=== PATIENT | male | born 1945 | race Caucasian/White ===

== ENCOUNTER 2016-06-03 16:13 | Inpatient (IN) | payer OTHER, MEDICAID ==
[~2016-06-03] VITALS: Ht 182.9 cm; Wt 64.9 kg
[2016-06-03 16:19] VITALS: BP 140/75; PULSE 90; RESP 14; TEMP 98.2; O2SAT 99
--- NOTE | 2016-06-03 16:25 | NUR ---
Placed in room 1 . Placed on monitoring manager, blood pressure machine and pulse oximeter. To gown for exam. Side rails up.
--- NOTE | 2016-06-03 16:26 | NUR ---
BIB BLS, came from [facility].c/o increasing of confusion,abnormal behavior. pt is awake,confused,oriented x 1 only. follow command,cooperative,no acute distress.
--- NOTE | 2016-06-03 16:37 | NUR ---
SARA Mena at bedside examining patient.
--- NOTE | 2016-06-03 16:40 | NUR ---
# 20 gauge angiocath placed to . Use of asceptic technique. Opsite placed over site. Blood return noted. Blood for lab drawn from site. Flushed with 10 cc of normal saline. No evidence of infiltration noted. Patient tolerated well.
--- NOTE | 2016-06-03 16:41 | NUR ---
visited by his .
--- NOTE | 2016-06-03 16:41 | NUR ---
portable chest xay done.
--- NOTE | 2016-06-03 16:43 | NUR ---
Pt transported to radiology.
--- NOTE | 2016-06-03 16:43 | NUR ---
transported to CT scan via [facility].
[2016-06-03 16:52] LABS: BASOPHILS % (AUTO) 0.7 % (0.0-2.0); EOSINOPHILS % (AUTO) 0.6 % (0.0-4.0); HEMATOCRIT 32.4 % (36-54); HEMOGLOBIN 11.1 g/dL (14.0-18.0); LYMPHOCYTES # (AUTO) 0.8 K/uL (1.0-5.5); LYMPHOCYTES % (AUTO) 12.2 % (20.5-51.5); MEAN CORPUSCULAR HEMOGLOBIN 28 pg (27-31); MEAN CORPUSCULAR HGB CONC 34 % (32-36); MEAN CORPUSCULAR VOLUME 82 fL (79.0-98.0); MONOCYTES # (AUTO) 0.5 K/uL (0.0-1.0); MONOCYTES % (AUTO) 7.7 % (1.7-9.3); NEUTROPHILS # (AUTO) 5.6 K/uL (1.8-7.7); NEUTROPHILS % (AUTO) 78.8 % (40.0-70.0); PLATELET COUNT (AUTO) 222 K/uL (130-430); RED BLOOD CELL COUNT(AUTO) 3.97 MIL/uL (4.2-6.2); RED CELL DISTRIBUTION WIDTH 12.5 % (9.0-15.0); WHITE BLOOD COUNT (AUTO) 6.9 K/uL (4.8-10.8)
[2016-06-03 16:55] LABS: ANION GAP 6 (5-15); CALCIUM 9.2 mg/dL (8.4-11.0); CHLORIDE 101 mmol/L (98-107); CREATININE 1.15 mg/dL (0.55-1.30); GLUCOSE 166 mg/dL (70-99); POTASSIUM 4.1 mmol/L (3.5-5.1); SODIUM SERUM 136 mmol/L (136-145); UREA NITROGEN, BLOOD 16 mg/dL (8-21)
[2016-06-03 16:57] LABS: INR 1.1 (0.80-1.20); PROTHROMBIN TIME 11.6 SECS (9.5-12.5)
[2016-06-03] MEDS ORDERED: LISI-600 PO (16:58)
[2016-06-03] MEDS ORDERED: MELA3TAB37 PO (16:58)
[2016-06-03] MEDS ORDERED: LORA-258 PO (16:58)
[2016-06-03] MEDS ORDERED: METF-510 PO (16:58)
--- NOTE | 2016-06-03 17:00 | NUR ---
return back from ct scan
[2016-06-03 17:01] LABS: ALANINE AMINOTRANSFERASE 17 U/L (12-78); ALBUMIN 3.8 g/dL (3.4-4.8); ASPARTATE AMINOTRANSFERASE 17 U/L (10-37); TOTAL BILIRUBIN 0.8 mg/dL (0.0-1.0); TOTAL PROTEIN, SERUM 7.7 g/dL (6.4-8.3)
[2016-06-03 17:04] LABS: ACETAMINOPHEN < 1 ug/mL (1-30)
--- NOTE | 2016-06-03 17:36 | NUR ---
Dr. Alfaro at the bedside discussing plan of care.
[2016-06-03 17:50] LABS: BILIRUBIN,URINE NEGATIVE (NEGATIVE); BLOOD, URINE NEGATIVE (NEGATIVE); CLARITY/URINE CLEAR (CLEAR); COLOR,URINE YELLOW (YELLOW); GLUCOSE,URINE NEGATIVE (NEGATIVE); KETONES,URINE NEGATIVE (NEGATIVE); LEUKOCYTE ESTERASE ,URINE NEGATIVE (NEGATIVE); NITRITE, URINE NEGATIVE (NEGATIVE); PROTEIN URINE NEGATIVE (NEGATIVE)
--- NOTE | 2016-06-03 18:00 | NUR ---
Dr alva reviewed the ct scan result,possible chronic or subcuate hemorrhagic.Dr HILL paged.awaiting him to call back.
--- NOTE | 2016-06-03 18:00 | NUR ---
Medication reconciliation completed with information provided by PT's record. Any prior medication reconciliation on file was reviewed and corrected.
--- NOTE | 2016-06-03 18:17 | NUR ---
Attempt call x 3 for emergency room prior to end of shift to begin admission. Not able to reach admit nurse, Leila. Will endorse to night nurse.
[2016-06-03] MEDS ORDERED: ACET325T53 PO (18:23)
--- NOTE | 2016-06-03 18:29 | NUR ---
Dr HILL called back ,update pt's ct result by Dr alva,it's ok to MS per Dr alva.
--- NOTE | 2016-06-03 18:31 | NUR ---
Patient will be admitted to care of [facility]. Admitted to unit. Will go to room . Belongings list completed. Summary report printed. Report given to .
--- NOTE | 2016-06-03 18:31 | NUR ---
Call from ER says they will bring pt when assist returns to help with transport.
--- NOTE | 2016-06-03 18:41 | NUR ---
ADMISSION NOTE Received patient from ER via [facility], received report from RN. Patient admitted with diagnosis of ALOC. Patient oriented to hospital routine, call light, toileting and safety-patient verbalized understanding.
--- NOTE | 2016-06-03 18:45 | NUR ---
CONSULTATION PAGED REASON FOR CONSULTATION:ALOC WAS CONSULT CALLED?Y PERSON WHO WAS NOTIFIED:[facility] CONSULTING PHYSICIAN:,SAID SENIOR COBOL DEVELOPER SPECIALTY:PSYCH SENIOR COBOL DEVELOPER PHONE NUMBER:[phone]
--- NOTE | 2016-06-03 19:33 | NUR ---
CONSULTATION PAGED REASON FOR CONSULTATION:CONFUSION WAS CONSULT CALLED?Y PERSON WHO WAS NOTIFIED:[facility] CONSULTING PHYSICIAN:THEODORA ENRIQUE CUSTOMER SUPPORT AGENT SPECIALTY:NEURO CUSTOMER SUPPORT AGENT PHONE NUMBER:[phone]
[2016-06-03 20:10] VITALS: BP 134/92; PULSE 83; RESP 18; TEMP 99.1; O2SAT 97
--- NOTE | 2016-06-03 20:10 | NUR ---
OPENING ASSESSMENT PATIENT ALERT/ORIENTED X1. SPEECH IS CLEAR. PATIENT IS FORGETFUL AND CONFUSED. DON'T KNOW WHY HE IS IN THE HOSPITAL. MOVES ALL EXTREMITIES WITH GENERALIZED WEAKNESS. USES WHEEL CHAIR FOR MOBILITY, ACCORDING TO . HAS SALINE LOCK 20 G LFA INTACT AND PATENT. SITE IS CLEAR. TOLERATING DIET WELL. NO S/S OF ASPIRATION NOTED. CALL LIGHT WITHIN EASY ACCESS. EDUCATED PATIENT TO CALL NURSE FOR ALL NEEDS AND NOT TO GET OUT OF BED.
[2016-06-03] MEDS ORDERED: NON-FORMULARY MEDICATION (Melatonin 3 MG) PO SCH (21:00)
--- NOTE | 2016-06-03 21:00 | NUR ---
BLOOD SUGAR 175 RECEIVED REGULAR INSULIN 2 UNITS SC.
[2016-06-03] MEDS: INSULIN REGULAR, HUMAN 100 UNITS/ML, 10 ML VIAL (novoLIN R) SUBCUT PRN (21:55)
[2016-06-03] MEDS: LORazepam 1 MG TABLET PO PRN (23:10)
--- NOTE | 2016-06-03 23:10 | NUR ---
AGITATED PATIENT SITTING @ BEDSIDE TRYING TO GET OUT OF BED. INSISTING ON GOING HOME. EDUCATED PATIENT TO STAY IN BED, BUT PATIENT CONTINUED TO BE AGITATED. ATIVAN 0.5MG PI GIVEN @ THIS TIME.
[2016-06-04] VITALS (7 sets, daily range): BP systolic 122–157; BP diastolic 69–94; PULSE 71–124; RESP 16–20; TEMP 97.7–100.9; O2SAT 96–100
--- NOTE | 2016-06-04 00:15 | NUR ---
NOTE PATIENT IS NOT AGITATED @ THIS TIME. RESTING QUIETLY WITHOUT DISTRESS. FALL PRECAUTION. BED ALARM ON. BED IN LOW POSITION. SIDE RAILS UP X3.CALL LIGHT WITHIN EASY ACCESS.
--- NOTE | 2016-06-04 02:05 | NUR ---
NOTES PATIENT NOT AGITATED @ THIS TIME. RESTING QUIETLY WITHOUT DISTRESS.
--- NOTE | 2016-06-04 04:10 | NUR ---
PATIENT RESTING: Patient resting quietly. No acute distress noted. Vital signs within normal range.
--- NOTE | 2016-06-04 06:00 | NUR ---
BLOOD SUGAR 133 NO COVERAGE REQUIRED.
--- NOTE | 2016-06-04 06:25 | NUR ---
CLOSING NOTES NO DISTRESS NOTED. SLEEPING INTERMITTENTLY. NO PAIN NOTED. PULLED OUT HIS IV. CALL LIGHT WITHIN EASY ACCESS. EDUCATED PATIENT TO CALL NURSE FOR ALL NEEDS AND NOT TO GET OUT OF BED. FALL PRECAUTIONS. BED LOCKED IN LOW POSITION. SIDE RAILS UP X3. BED ALARM ON.
[2016-06-04 06:47] LABS: ANION GAP 6 (5-15); CALCIUM 9.1 mg/dL (8.4-11.0); CHLORIDE 102 mmol/L (98-107); CREATININE 0.99 mg/dL (0.55-1.30); GLUCOSE 135 mg/dL (70-99); POTASSIUM 3.9 mmol/L (3.5-5.1); SODIUM SERUM 136 mmol/L (136-145); UREA NITROGEN, BLOOD 13 mg/dL (8-21)
[2016-06-04 06:53] LABS: BASOPHILS # (AUTO) 0.1 K/uL (0.0-0.2); BASOPHILS % (AUTO) 1.1 % (0.0-2.0); EOSINOPHILS # (AUTO) 0.1 K/uL (0.0-0.4); EOSINOPHILS % (AUTO) 1.4 % (0.0-4.0); HEMATOCRIT 30.8 % (36-54); HEMOGLOBIN 10.1 g/dL (14.0-18.0); LYMPHOCYTES % (AUTO) 19.4 % (20.5-51.5); MEAN CORPUSCULAR HEMOGLOBIN 27 pg (27-31); MEAN CORPUSCULAR HGB CONC 33 % (32-36); MEAN CORPUSCULAR VOLUME 82 fL (79.0-98.0); MONOCYTES # (AUTO) 0.5 K/uL (0.0-1.0); MONOCYTES % (AUTO) 10.4 % (1.7-9.3); NEUTROPHILS # (AUTO) 3.2 K/uL (1.8-7.7); NEUTROPHILS % (AUTO) 67.7 % (40.0-70.0); PLATELET COUNT (AUTO) 201 K/uL (130-430); RED BLOOD CELL COUNT(AUTO) 3.74 MIL/uL (4.2-6.2); RED CELL DISTRIBUTION WIDTH 12.4 % (9.0-15.0); WHITE BLOOD COUNT (AUTO) 4.9 K/uL (4.8-10.8)
--- NOTE | 2016-06-04 08:00 | NUR ---
AM Initial Notes Pt aaox1 and with altered level of consciousness. No complaints of pain or discomfort. No distress noted. Incontinent care done. Repositioned and kept comfortable. Fall and safety precautions enforced with bed alarm armed, fall risk band on and close to nurse's station. Will monitor.
[2016-06-04] MEDS: QUEtiapine FUMARATE 25 MG TABLET PO SCH ×2 (08:29→20:28)
[2016-06-04] MEDS: LISINOPRIL 20 MG TABLET PO SCH (08:29)
--- NOTE | 2016-06-04 09:30 | NUR ---
Physical Therapy Pt up with therapist. Very weak and unsteady gait noted.
--- NOTE | 2016-06-04 11:00 | NUR ---
Rounds Pt sound asleep. No signs of facial grimacing for pain or discomfort. No distress noted. at bedside. Safety and fall precautions enforced.
[2016-06-04] MEDS: INSULIN REGULAR, HUMAN 100 UNITS/ML, 10 ML VIAL (novoLIN R) SUBCUT PRN ×2 (11:53→20:35)
--- NOTE | 2016-06-04 13:00 | NUR ---
Rounds Pt awake going for MRI. No complaints of pain or discomfort. No distress noted. New IV inserted.
[2016-06-04] MEDS ORDERED: GADOPENTETATE DIMEGLUMINE 15 ML VIAL IV ONE (13:35)
--- NOTE | 2016-06-04 14:47 | NUR ---
Confused Pt confused and trying to get out of bed stating "I need to leave and collect my cans." "I need to put on my shoes and get out of here." Reorientation done. Made pt lay back down. Will monitor.
--- NOTE | 2016-06-04 15:30 | NUR ---
Restless Pt feeling restless and confused and tries to get out of bed. Calming and comfort measures done. Pt would lay back then sit up and try to get out of bed again.
--- NOTE | 2016-06-04 17:22 | NUR ---
Rounds Pt awake, calm and cooperative. No complaints of pain or discomfort. No distress noted. at bedside. Direct observer inside room. Fall and safety precautions enforced.
--- NOTE | 2016-06-04 18:10 | NUR ---
Fever Pt feeling cold. Vital signs: T-100.5, P-124, BP-154/94. Charge nurse aware and put a page to Dr. Sheehan.
[2016-06-04] MEDS: ACETAMINOPHEN 325 MG TABLET PO PRN (18:16)
--- NOTE | 2016-06-04 18:20 | NUR ---
Dr. Sissy BISHOP doing rounds and made aware of patient condition. Plan of care discussed with patient and at bedside.
--- NOTE | 2016-06-04 18:45 | NUR ---
Closing notes Pt awake resting in bed. No complaints of pain or discomfort. Temperature 100.3. Incontinent care done. Will endorse care to incoming nurse.
--- NOTE | 2016-06-04 19:38 | NUR ---
PM NOTE pt. a/ox1, temperature 100.9, cooling measures taken, no distress noted, denies pain, will continue to monitor.
--- NOTE | 2016-06-04 20:15 | NUR ---
INCONTINENT PT. INCONTINENT OF URINE, LORNA CARE DONE NEW GOWN APPLIED, NEW LINEN APPLIED. REPOSITIONED WITH PILLOW SUPPORT.
--- NOTE | 2016-06-04 20:30 | NUR ---
ACCUCHECK BLOOD PTZPF=594, 6 UNITS REGULAR INSULIN GIVEN ORDERED.
[2016-06-04] MEDS: LORazepam 1 MG TABLET PO PRN (20:37)
--- NOTE | 2016-06-04 21:38 | NUR ---
RN ROUNDS pt. resting quietly, vital signs stable, no distress noted, no s/s of pain or discomfort, will continue to monitor.
--- NOTE | 2016-06-04 23:27 | NUR ---
RN ROUNDS PT. RESTING QUIETLY, VITAL SIGNS STABLE, NO DISTRESS NOTED, DENIES PAIN, WILL CONTINUE TO MONITOR.
--- NOTE | 2016-06-05 01:15 | NUR ---
RN ROUNDS PT. RESTING QUIETLY, VITAL SIGNS STABLE, NO DISTRESS NOTED, DENIES PAIN, WILL CONTINUE TO MONITOR.
--- NOTE | 2016-06-05 03:15 | NUR ---
RN ROUNDS PT. RESTING QUIETLY, VITAL SIGNS STABLE, NO DISTRESS NOTED, DENIES PAIN, WILL CONTINUE TO MONITOR.
--- NOTE | 2016-06-05 05:18 | NUR ---
RN ROUNDS PT. RESTING QUIETLY, VITAL SIGNS STABLE, NO DISTRESS NOTED, DENIES PAIN, WILL CONTINUE TO MONITOR.
[2016-06-05 05:24] VITALS: BP 139/79; PULSE 102; RESP 16; TEMP 99.4; O2SAT 96
--- NOTE | 2016-06-05 06:11 | NUR ---
ACCUCHECK/CLOSING NOTES BLOOD NXCRQ=306, NO COVERAGE REQUIRED. VITAL SIGNS STABLE, NO DISTRESS NOTED, DENIES PAIN. IV ACCESS FLUSHED WELL, ALL ANTICIPATED NEEDS MET.
[2016-06-05 06:26] LABS: ANION GAP 7 (5-15); CALCIUM 9.1 mg/dL (8.4-11.0); CHLORIDE 101 mmol/L (98-107); CREATININE 1.15 mg/dL (0.55-1.30); GLUCOSE 141 mg/dL (70-99); POTASSIUM 4.1 mmol/L (3.5-5.1); SODIUM SERUM 137 mmol/L (136-145)
[2016-06-05 06:48] LABS: BASOPHILS % (AUTO) 0.7 % (0.0-2.0); EOSINOPHILS % (AUTO) 0.4 % (0.0-4.0); HEMOGLOBIN 11.2 g/dL (14.0-18.0); LYMPHOCYTES # (AUTO) 0.7 K/uL (1.0-5.5); LYMPHOCYTES % (AUTO) 10.4 % (20.5-51.5); MEAN CORPUSCULAR HEMOGLOBIN 28 pg (27-31); MEAN CORPUSCULAR HGB CONC 34 % (32-36); MEAN CORPUSCULAR VOLUME 83 fL (79.0-98.0); MONOCYTES # (AUTO) 0.7 K/uL (0.0-1.0); MONOCYTES % (AUTO) 11.2 % (1.7-9.3); NEUTROPHILS # (AUTO) 4.9 K/uL (1.8-7.7); NEUTROPHILS % (AUTO) 77.3 % (40.0-70.0); PLATELET COUNT (AUTO) 189 K/uL (130-430); RED BLOOD CELL COUNT(AUTO) 3.99 MIL/uL (4.2-6.2); RED CELL DISTRIBUTION WIDTH 12.5 % (9.0-15.0); WHITE BLOOD COUNT (AUTO) 6.3 K/uL (4.8-10.8)
[2016-06-05 07:01] LABS: UREA NITROGEN, BLOOD 17 mg/dL (8-21)
--- NOTE | 2016-06-05 07:54 | NUR ---
AM Initial Notes Pt aaoX1 with complaints of mild pain to skin when touched. Pt has a fever of 100.5. No sob, difficulty breathing or distress noted. Non productive cough noted. IV to left forearm #22g saline locked patent and flushing. Encouraged to eat breakfast. States he is not hungry and wants to sleep. Incontinent care done. Safety and fall risk precautions enforced with bed alarm armed, Fall ID band in place, room close to nurse's station and direct observer inside room. Repositioned and kept comfortable. Refused to wear bilateral scd. Will monitor.
[2016-06-05 08:07] VITALS: BP 141/82; PULSE 112; RESP 20; TEMP 100.5; O2SAT 98
[2016-06-05] MEDS: QUEtiapine FUMARATE 25 MG TABLET PO SCH ×2 (08:21→20:18)
[2016-06-05] MEDS: ACETAMINOPHEN 325 MG TABLET PO PRN ×2 (08:21→19:42)
[2016-06-05] MEDS: LISINOPRIL 20 MG TABLET PO SCH (08:21)
--- NOTE | 2016-06-05 08:27 | NUR ---
Tylenol Medicated patient with Tylenol 650mg for fever 100.5.
--- NOTE | 2016-06-05 09:00 | NUR ---
Pt refused to eat breakfast. States he is not hungry and wants to sleep.
[2016-06-05 09:21] VITALS: TEMP 100.1
--- NOTE | 2016-06-05 09:30 | NUR ---
Rounds Pt asleep. Temperature 100.1. Sponge bath and Cooling measures done. Will monitor.
--- NOTE | 2016-06-05 10:30 | NUR ---
Weak Pt awake and incontinent care done. Pt appears to be weak and tired. Kept comfortable. Direct observer inside room.
--- NOTE | 2016-06-05 11:05 | NUR ---
Social Service Note: CM asked for IT DIRECTOR to speak with pt's about pt's discharge plan and alf facilities that have locked units. IT DIRECTOR went to pt's bedside; no family present. IT DIRECTOR has left messages for pt's at ([phone]). IT DIRECTOR will remain available and will continue to try and speak to pt's about discharge plan.
--- NOTE | 2016-06-05 11:30 | NUR ---
Physical therapy Pt having therapy at bedside. Per therapist, pt is weaker today than yesterday. Placed pt back in bed and kept comfortable.
[2016-06-05 11:51] VITALS: BP 115/69; PULSE 97; RESP 20; TEMP 98.1; O2SAT 97
--- NOTE | 2016-06-05 12:30 | NUR ---
Lunch Pt eating lunch and being fed by . No complaints of pain or discomfort. No distress noted. Non productive cough noted. Direct observer inside room. Will monitor.
--- NOTE | 2016-06-05 13:30 | NUR ---
PHYSICAL THERAPY CO-SIGN The Physical Therapy Progress Notes documented by Death Claim Examiner have been reviewed. Reviewed/Co-Signed by: Patricia Oro, PT Documentation Done by: Valentin Dumont PTA I concur with the documentation of this HEALTH EDUCATION DIRECTOR. Plan: continue PT as per plan of care. Addendum: 06/05/16 at 1547 by Patricia Oro PT Amended: Links added.
--- NOTE | 2016-06-05 15:01 | NUR ---
Resting Pt asleep. No significant changes noted. Will monitor. at bedside.
[2016-06-05 16:03] VITALS: BP 154/81; PULSE 100; RESP 20; TEMP 98.8; O2SAT 96
[2016-06-05] MEDS ORDERED: ASPIRIN 81 MG TABLET(ECOTRIN) PO ONE (16:45)
--- NOTE | 2016-06-05 17:00 | NUR ---
Rounds Pt asleep. No significant changes noted. Will monitor.
[2016-06-05] MEDS: INSULIN REGULAR, HUMAN 100 UNITS/ML, 10 ML VIAL (novoLIN R) SUBCUT PRN ×2 (17:03→20:22)
--- NOTE | 2016-06-05 17:15 | NUR ---
Dr. Sissy BISHOP doing rounds. Plan of care discussed with at bedside.
--- NOTE | 2016-06-05 18:49 | NUR ---
Closing notes Pt awake resting in bed. No complaints of pain or discomfort. No distress noted. Incontinent care done. Safety and fall precautions enforced. Direct Observer inside room.
[2016-06-05 19:30] VITALS: BP 140/85; PULSE 117; RESP 18; TEMP 101.3; O2SAT 95
--- NOTE | 2016-06-05 19:30 | NUR ---
initial note pt. received aaox1. no s/s of sob or distress noted at this time. no facial grimacing indicating any pain. pt. has elevated temperature and increased heart rate. will administer tylenol for fever as ordered. will reassess. if fever persists will notify MD. IV access noted to left forearm saline lock. no redness or swelling at the site. pt. is direct observation, will stay in the room and close by at all times. pt refused to have scds in place. pt. is at the bedside at this time. plan of care has been discussed with her, verbalizes understanding. will continue to monitor for any changes. safety and fall precautions in place. bed alarm on, in the lowest locked position. will remain at the bedside.
--- NOTE | 2016-06-05 20:00 | NUR ---
MD moose Sheehan called regarding elevated temp and HR as it meets SIRS criteria, will wait to see if he would like to implement the sepsis protocol.
--- NOTE | 2016-06-05 20:15 | NUR ---
paged for Dr Sheehan, dialed . s/w Juve.
[2016-06-05] MEDS: MUPIROCIN 2% TOPICAL OINTMENT 22 GM TP SCH (20:23)
--- NOTE | 2016-06-05 20:32 | NUR ---
md call back md called back with orders, will implement.
[2016-06-05] MEDS ORDERED: PIPERACILLIN/TAZOBACTAM 3.375 GM/VIAL (ZOSYN) IV ONE (21:07)
[2016-06-05] MEDS: NACL 0.9% 1,000 ML IV SCH (21:40)
[2016-06-05] MEDS: PIPERACILLIN/TAZO 3.375/DEX-IS 50 ML IV SCH (21:53)
--- NOTE | 2016-06-05 22:02 | NUR ---
rounds pt. remains under direct observation. resting quietly at this time. IV zosyn infusing well per dr. graza orders. no adverse reactions noted. no s/s of sob or distress. no complaints of any pain. will continue monitoring. x3. siderails up. bed in lowest, locked position. i will remain at the bedside at all times.
[2016-06-06] VITALS: BP 128/68; PULSE 98; RESP 17; TEMP 98.6; O2SAT 95
--- NOTE | 2016-06-06 00:33 | NUR ---
rounds pt. resting quietly in bed, eyes closed. chest rise and fall noted. no s/s of sob or distress noted at this time. no facial grimacing indicating pain. IV fluids infusing well. will continue to monitor through direct observation. side rails up x3. bed in lowest, locked position. contact precautions in place.
--- NOTE | 2016-06-06 02:06 | NUR ---
Rounds pt. resting in bed with eyes closed. chest rise and fall noted. no s/s of sob or distress. no facial grimacing for pain. temperature has gone down to 98.6, heart rate is also WNL. IV fluids continue to infuse well. will continue to monitor closely. bed in lowest, locked position. remaining at the bedside at all times.
[2016-06-06] MEDS: PIPERACILLIN/TAZO 3.375/DEX-IS 50 ML IV SCH ×4 (03:20→20:32)
[2016-06-06 04:00] VITALS: BP 128/68; PULSE 96; RESP 18; TEMP 98.6; O2SAT 95
--- NOTE | 2016-06-06 04:00 | NUR ---
rounds pt. resting quietly. no s/s of sob or distress. denies pain. VSS. pt. able to use the urinal. voided 50 cc of clear yellow urine. will continue to monitor closely. at the bedside at all times to ensure pt. safety. bed in lowest, locked position.
--- NOTE | 2016-06-06 06:22 | NUR ---
closing note pt. resting quietly in bed. no s/s of sob or distress. pt. denies pain. morning accu check done, bs 131, no coverage needed per sliding scale. IV fluids continue to infuse well. report was given to GOLF COURSE MANAGER who will be sitter for the pt. today. will endorse care to am nurse. all necessary needs were met throughout the shift. safety and fall precautions were maintained. contact precautions were maintained as well. bed is in lowest, locked position.
--- NOTE | 2016-06-06 07:31 | NUR ---
INITIAL NOTES RECEIVED PATIENT ON BED ASLEEP WITH SITTER AT BEDSIDE.BREATHING EVEN AND UNLABORED.NO ACUTE DISTRESS.IVF INFUSING WELL;NO SIGNS AND SYMPTOMS OF INFILTRATION.SAFETY AND FALL PRECAUTIONS IN PLACE.CALL LIGHT WITHIN REACH
[2016-06-06 07:33] VITALS: BP 134/77; PULSE 79; RESP 18; TEMP 98.5; O2SAT 94
[2016-06-06] MEDS: QUEtiapine FUMARATE 25 MG TABLET PO SCH ×2 (08:23→20:17)
[2016-06-06] MEDS: LISINOPRIL 20 MG TABLET PO SCH (08:24)
[2016-06-06] MEDS: MUPIROCIN 2% TOPICAL OINTMENT 22 GM TP SCH ×2 (09:20→21:08)
[2016-06-06] MEDS: INSULIN REGULAR, HUMAN 100 UNITS/ML, 10 ML VIAL (novoLIN R) SUBCUT PRN ×3 (11:03→20:30)
[2016-06-06] MEDS: NACL 0.9% 1,000 ML IV SCH ×2 (11:18→23:19)
--- NOTE | 2016-06-06 11:35 | NUR ---
NOTES PATIENT ON BED AWAKE;NO ACUTE DISTRESS
[2016-06-06 12:00] VITALS: BP 117/68; PULSE 90; RESP 18; TEMP 99.1; O2SAT 98
--- NOTE | 2016-06-06 14:44 | NUR ---
NOTES PATIENT ON BED AWAKE TRYING TO GET OUT OF BED UNASSISTED;SITTER AT BEDSIDE
[2016-06-06 15:20] VITALS: BP 132/74; PULSE 85; RESP 16; TEMP 98.6; O2SAT 98
--- NOTE | 2016-06-06 16:30 | NUR ---
NOTES CHECKED PATIENT;NO ACUTE DISTRESS
--- NOTE | 2016-06-06 18:13 | NUR ---
CLOSING NOTES PATIENT ON BED AWAKE WITH AND SITTER AT BEDSIDE.CALM AND RELAX.BREATHING EVEN AND UNLABORED.NO ACUTE DISTRESS.IVF INFUSING WELL;NO SIGNS AND SYMPTOMS OF INFILTRATION.SAFETY AND FALL PRECAUTIONS IN PLACE.CALL LIGHT WITHIN REACH.WILL ENDORSE TO NEXT SHIFT ACCORDINGLY
[2016-06-06 19:28] VITALS: BP 134/74; PULSE 94; RESP 18; TEMP 99.9; O2SAT 95
--- NOTE | 2016-06-06 20:00 | NUR ---
Initial note A/O x 2, patient can follow simple commands, but confused. No SOB, no chest pain, denied pain. Skin warm to touch, IV at L FA, wrapped with kerlix. Clear lung sounds and active bowel sounds. +2 radial and pedal pulses, no edema noted. Risk for fall, bed at lowest position, bed alarm in use, sitter at bedside. SCD in place. Call light within reach, will continue to monitor patient.
[2016-06-06] MEDS: LORazepam 1 MG TABLET PO PRN (20:18)
--- NOTE | 2016-06-06 20:30 | NUR ---
Patient's agitated. Ativan and Seroquel given, patient also refused to use SCD. Reoriented patient, sitter at bedside.
--- NOTE | 2016-06-06 22:00 | NUR ---
Rounds A/O x 2, confused. Mild agitated. No SOB, no chest pain, denied pain. Skin warm to touch, IV at L FA, wrapped with kerlix. Reoriented patient, bed at lowest position, bed alarm in use, sitter at bedside. Patient refused to use SCD. Unable to provide education due to patient mental status. Call light within reach, will continue to monitor patient.
--- NOTE | 2016-06-06 22:55 | NUR ---
IV RE-INSERTION: Patient pulled IV, old IV catheter intact, old IV site clean, mild infiltration noted. Restarted on R FA. Successful after 1 attempts. Resumed current IVF of NS and regulated @ 75ml/hr. Will observe for any signs of infiltration.
--- NOTE | 2016-06-07 00:20 | NUR ---
Rounds Patient sleeping, no SOB, no chest pain, no grimacing. IV at R FA, patent, continued NS @ 75 ml/hr. Bed at lowest position, bed alarm in use, sitter at bedside. Patient refused to use SCD. Call light within reach, will continue to monitor patient.
[2016-06-07] MEDS: PIPERACILLIN/TAZO 3.375/DEX-IS 50 ML IV SCH ×4 (02:04→21:57)
--- NOTE | 2016-06-07 02:10 | NUR ---
Rounds Resting in bed, eyes closed, but open when SN approached. Patient is calm.no SOB, no chest pain, no grimacing. IV at R FA, patent, continued NS @ 75 ml/hr. Bed at lowest position, bed alarm in use, sitter at bedside. Patient still refused to use SCD. Call light within reach, will continue to monitor patient.
[2016-06-07 04:00] VITALS: BP 130/71; PULSE 89; RESP 16; TEMP 98.9; O2SAT 98
--- NOTE | 2016-06-07 04:00 | NUR ---
Rounds Sleeping in bed, no SOB, no chest pain, no grimacing. IV at R FA, patent, continued NS @ 75 ml/hr. Bed at lowest position, bed alarm in use, sitter at bedside. Call light within reach, will continue to monitor patient.
--- NOTE | 2016-06-07 06:05 | NUR ---
Closing note Sleeping/resting in bed, no SOB, no chest pain, no grimacing. Blood sugar 127, no s/s of hyper or hypoglycemia. IV at R FA, patent, continued NS @ 75 ml/hr. Bed at lowest position, bed alarm in use, sitter at bedside. Call light within reach, will give report to incoming nurse.
[2016-06-07] MEDS: INSULIN REGULAR, HUMAN 100 UNITS/ML, 10 ML VIAL (novoLIN R) SUBCUT PRN ×4 (06:06→22:04)
--- NOTE | 2016-06-07 06:38 | NUR ---
OPENING: RECEIVED PATIENT FROM HOME HEALTH CNA SITTER, SLEEPING SOUNDLY, RESPIRATION EVEN AND UNLABORED. WILL CONTINUE TO ASSESS AND MONITOR . CALL LIGHT WITHIN REACH.
--- NOTE | 2016-06-07 07:11 | NUR ---
NRSG: RECEIVED PATIENT FROM NIGHT RN,PATIENT STILL SLEEPING. IV SITE ON THE RIGHT FOREARM INTACT AND INPLACED AND IVF ON PROGRESS, PATIENT IS LYING ON HIS BACK AND CALL LIGHT WITHIN REACH . WILL CONTINUE TO ASSESS AND MONITOR PATIENT. SITTER AT THE BEDSIDE.
[2016-06-07 08:05] VITALS: BP 119/72; PULSE 100; RESP 18; TEMP 98.4; O2SAT 96
--- NOTE | 2016-06-07 08:08 | NUR ---
ASSESSMENT: AWAKE,ALERT AND ORIENTED TO NAME ONLY. RESPIRATION EVEN AND UNLABORED/ LUNGS CLEAR BILATERAL ON AUSCULTATION. ABDOMEN SOFT WITH BOWEL SOUND X 4 QUADRANTS. RADIAL AND PEDAL PULSE PALPABLE/ NO C/O OF PAIN .NO DISCOMFORT. REFUSED TO EAT BREAKFAST AT THIS TIME. WENT BACK TO SLEEP AFTER. SITTER AT THE BEDSIDE.
--- NOTE | 2016-06-07 08:45 | NUR ---
MEALS: NEEDS TOTAL ASSISTANCE TO EAT AND ATE 95% FOR BREAKFAST WITHOUT DIFFICULTY. HOB REMAINS 45 WHILE EATING AND AFTER EATING. WILL ADJUST LATER AFTER 30-45 MINUTES POST EATING.
[2016-06-07] MEDS: LISINOPRIL 20 MG TABLET PO SCH (09:47)
[2016-06-07] MEDS: QUEtiapine FUMARATE 25 MG TABLET PO SCH ×3 (09:47→21:56)
[2016-06-07] MEDS: MUPIROCIN 2% TOPICAL OINTMENT 22 GM TP SCH ×2 (09:48→21:58)
--- NOTE | 2016-06-07 09:52 | NUR ---
MEDS: TOOK MEDICINES WITHOUT DIFFICULTY. PATIENT FORGOT THAT HE ALREADY ATE BREAKFAST. REORIENTATION GIVEN.
--- NOTE | 2016-06-07 10:24 | NUR ---
ACTIVITY; STILL RESTING ON BED ASLEEP, NO DISTRESS, SITTER AT THE BEDSIDE.
--- NOTE | 2016-06-07 11:37 | NUR ---
VISITOR: , AND MOTHER AT THE BEDSIDE. PATIENT WAS ASKING WHY HE SOME UP TO BE HERE. REORIENTATION GIVEN .
--- NOTE | 2016-06-07 11:45 | NUR ---
ROUNDS: SEEN AND EXAMINED BY DR. KENNEDY AND DR. KENNEDY SPOKE TO THE THE PLAN FOR PATIENT. DR. KENNEDY WAS NOTIFIED FOR AGITATION FROM LAST NIGHT AND NURSE GAVE ATIVAN AND CALMED DOWN AFTER.
[2016-06-07 12:00] VITALS: BP 118/70; PULSE 100; RESP 18; TEMP 97; O2SAT 96
--- NOTE | 2016-06-07 12:10 | NUR ---
ACTIVITY: PATIENT AWAKE, AND ORIENTED TO NAME ONLY, ABLE TO FOLLOW COMMAND. AND MOTHER IN LAW AT THE BEDSIDE .PATIENT IS ABOUT TO EAT LUNCH. HEAD OF BED 45 DEGREES. NO, PAIN EXCEPT IF YOU MOVES HIS RIGHT LEGS/HIP , OTHERWISW NO PAIN. NO RESPIRATORY DISTRESS AND CALL LIGHT WITHIN REACH.
--- NOTE | 2016-06-07 13:31 | NUR ---
BM: INCONTINENT OF B/B LARGE AMOUNT. KEPT CLEANED AND DRY. LOTION APPLIED . TURNED TO SIDE AND PILLOW IN BETWEEN LEGS. FAMILY AT THE BEDSIDE.
[2016-06-07] MEDS: NACL 0.9% 1,000 ML IV SCH (13:40)
--- NOTE | 2016-06-07 14:22 | NUR ---
POSITION: REPOSITIONED TO SIDE, FAMILY AT THE BEDSIDE . NO DISTRESS. CALL LIGHT WITHIN REACH.
--- NOTE | 2016-06-07 15:00 | NUR ---
ACTIVITY: STILL SLEEPING INSPITE OF THE FAMILY NOISE INSIDE THE ROOM TALKING . NO RESPIRATORY DISTRESS.
[2016-06-07 16:00] VITALS: BP 118/68; PULSE 91; RESP 20; TEMP 98.1; O2SAT 99
--- NOTE | 2016-06-07 16:02 | NUR ---
NEUROSTATUS: AWAKE. ORIENTED TO NAME ONLY, ABLE TO SQUEEZE HANDS, NO C/O OF PAIN/ STILL FORGETFUL. REORIENTATION GIVEN. IV SITE ON THE RIGHT FOREARM INTACT AND INPLACED . TURNED TO SIDE . STILL DRY AND CALL LIGHT WITHIN REACH. , MOTHER IN LAW AND DAUGHTER AT THE BEDSIDE. SITTER AT THE BEDSIDE AT ALL TIMES.
--- NOTE | 2016-06-07 17:14 | NUR ---
BS: BLOOD SUGAR 155 . 2 UNITS SQ. NOVOLIN REGULAR INSULIN GIVEN.
--- NOTE | 2016-06-07 18:24 | NUR ---
CLOSING: RESTING ON BED, IV SITE INTACT AND INPLACED AND COVERED WITH ANABELLA, NO S/S OF INFILTRATION AND IVF ON PROGRESS. GAVE REPORT TO IN COMING CASH TELLER SITTER. NO RESPIRATORY DISTRESS ANS CALL LIGHT WITHIN REACH.
--- NOTE | 2016-06-07 19:09 | NUR ---
CLOSING: AWAKE,WATCHING TV AT THIS TIME, NO DISTRESS, QUIET AND CALMED AT THIS TIME. WILL GIVE REPORT TO CLAIMS PROCESSORCELL COVERER. CALL LIGHT WITHIN REACH.
--- NOTE | 2016-06-07 19:20 | NUR ---
OPENING NOTES REPORT GIVEN AT BEDSIDE FROM DAY SHIFT NURSE. PATIENT IS ALTERED AND DOES NOT KNOW WHERE HE IS. PATIENT IS CALM AND IN SEMI-FOWLERS POSITION. BED IN LOWEST POSITION, BED ALARM ON, CALL LIGHT WITHIN REACH. SITTER AT THE BEDSIDE. WILL CONTINUE TO MONITOR FREQUENTLY.
[2016-06-07 19:40] VITALS: BP 132/79; PULSE 96; RESP 20; TEMP 99.1; O2SAT 96
--- NOTE | 2016-06-07 20:07 | NUR ---
DR MARCIA KILGORE FOR CLARIFICATION OF MEDICATION ORDER DR. MARCIA KILGORE, INFORMED THAT DR. VANEGSA WAS ORACLE SPECIALIST.
--- NOTE | 2016-06-07 22:01 | NUR ---
BLOOD SUGAR [facility] PATIENTS BLOOD SUGAR WAS 197 AND SLIDING SCALE COVERAGE WAS PROVIDED AT 2 UNITS. NO SIGNS OR SYMPTOMS OF HYPOGLYCEMIA OR HYPERGLYCEMIA NOTED. WILL CONTINUE TO MONITOR. FALL, CONTACT ISOLATION PRECAUTIONS IN PLACE. SITTER AT BEDSIDE.
--- NOTE | 2016-06-07 22:10 | NUR ---
DR VANEGAS DID NOT CALL BACK TO CLARIFY NEW MEDICATION ORDER CHARGE NURSE INFORMED AND THE NEW ORDER QHS DOSE SEROQUEL 50 MG WAS ADMINISTERED AND THE BID SEROQUEL 25 MG WAS HELD. WILL TRY PAGING DR IN MORNING TO CLARIFY.
[2016-06-08] VITALS: BP 130/77; PULSE 83; RESP 16; TEMP 97.6; O2SAT 95
--- NOTE | 2016-06-08 | NUR ---
ROUNDS PATIENT IS RESTING COMFORTABLY. NO SIGNS AND SYMPTOMS OF DISTRESS NOTED. VISIBLE RISE AND FALL OF CHEST NOTED. BED IN LOWEST POSITION, BED ALARM ON, CALL LIGHT WITHIN REACH. WILL CONTINUE TO MONITOR. Addendum: 06/08/16 at 0230 by Jasmin Nunez RN SITTER AT BEDSIDE.
--- NOTE | 2016-06-08 02:00 | NUR ---
ROUNDS PATIENT IS RESTING COMFORTABLY. NO SIGNS AND SYMPTOMS OF DISTRESS NOTED. VISIBLE RISE AND FALL OF CHEST NOTED. BED IN LOWEST POSITION, BED ALARM ON, CALL LIGHT WITHIN REACH. WILL CONTINUE TO MONITOR. SITTER AT BEDSIDE
[2016-06-08] MEDS: PIPERACILLIN/TAZO 3.375/DEX-IS 50 ML IV SCH ×4 (04:00→21:27)
--- NOTE | 2016-06-08 04:00 | NUR ---
IV PLACEMENT: #20 gauge angiocath placed to Left Forearm. Use of aseptic technique. Opsite placed over site. Blood return noted. Flushed with 10cc of normal saline. No evidence of infiltration noted. Patient tolerated well.
[2016-06-08 04:10] VITALS: BP 139/71; PULSE 97; RESP 16; TEMP 98.3; O2SAT 94
[2016-06-08] MEDS: NACL 0.9% 1,000 ML IV SCH ×2 (06:31→19:44)
[2016-06-08] MEDS: INSULIN REGULAR, HUMAN 100 UNITS/ML, 10 ML VIAL (novoLIN R) SUBCUT PRN ×3 (06:32→21:15)
--- NOTE | 2016-06-08 06:57 | NUR ---
CLOSING NOTES PATIENT SLEEPING. VISIBLE RISE AND FALL OF CHEST NOTED. NO SIGNS OR SYMPTOMS OF DISTRESS NOTED. BED IN LOWEST POSITION, BED ALARM ON, CALL LIGHT WITHIN REACH. CONTACT PRECAUTIONS IN PLACE. WILL ENDORSE CARE TO THE DAY SHIFT NURSE.
--- NOTE | 2016-06-08 08:48 | NUR ---
OPENING NOTE PATIENT STATES HE HAS AN APPOINTMENT AT 9 AM THAT HIS IS TAKING HIM TO, ALSO STATING HE WANTS TO GET UP TO USE THE RESTROOM. OFFERED PT BEDPAN AND PT HAD A VERY LARGE LOOSE BROWN BM. CLEANED PT W KAMINI SAENZ AND REPOSITIONED HIM. PATIENT STATES HE WANTS TO TAKE HIS IV OUT BECAUSE HE NEEDS TO LEAVE AND DOESNT WANT IT IN WHEN HE LEAVES. REORIENTED PT TO SITUATION AND PLACE AND EXPLAINED HE WILL NEED IT FOR MEDICATION
--- NOTE | 2016-06-08 09:10 | NUR ---
Nutrition Update Bob Scale 13 noted. Pt admitted for ALOC. Diet: [facility] [place] BMI: 19.5 kg/m2 RD to follow per nutrition care standards.
[2016-06-08] MEDS: MUPIROCIN 2% TOPICAL OINTMENT 22 GM TP SCH ×2 (09:23→21:28)
[2016-06-08] MEDS: QUEtiapine FUMARATE 25 MG TABLET PO SCH ×2 (09:24→21:13)
[2016-06-08] MEDS: LORazepam 1 MG TABLET PO PRN (09:24)
[2016-06-08] MEDS: LISINOPRIL 20 MG TABLET PO SCH (09:25)
[2016-06-08] MEDS ORDERED: LACTOBACILLUS RHAMNOSUS GG 1 CAP CAPSULE PO ONE (10:00)
[2016-06-08 11:40] VITALS: BP 147/89; PULSE 94; RESP 18; TEMP 97.6; O2SAT 98
--- NOTE | 2016-06-08 12:07 | NUR ---
Social Service Note: FLORENTINO spoke to physician who has ordered for pt to transfer to a geropsych unit. PROGRAM STRATEGIST has faxed pt's information to [facility] [place] ([phone]). PROGRAM STRATEGIST spoke to their intake unit who stated that they are full and are not sure if they will have discharges today. PROGRAM STRATEGIST will continue to look for geropsych unit placement for pt. Pt is not currently on a 5150. Addendum: 06/08/16 at 1346 by Divine Carlos LCSW FLORENTINO met with pt's at bedside to discuss the discharge plan. PROGRAM STRATEGIST spoke with pt's about the geropsych placement; pt's appears agreeable. Pt's had many questions regarding pt's final DC plan back to SNF. Pt was at [facility]; pt's states that she believes that [facility] will not take him back. PROGRAM STRATEGIST spoke with pt's about other SNFs that have locked units for pt's with dementia/behavioral problems. Pt's states that she would like to start looking into alternative placement options. PROGRAM STRATEGIST has provided pt's with a list of SNFs that have locked units. PROGRAM STRATEGIST encouraged pt's to start visiting the SNFs now. PROGRAM STRATEGIST updated pt's that [facility] full today. Pt's states that she would prefer pt go to [facility] and not go further away. PROGRAM STRATEGIST will continue to follow up with [facility] to see when they will have an open bed. PROGRAM STRATEGIST will remain available for support.
--- NOTE | 2016-06-08 13:00 | NUR ---
PHYSICAL THERAPY CO-SIGN The Physical Therapy Progress Notes documented by Spanner Operator have been reviewed. Reviewed/Co-Signed by: Patricia Oro, PT Documentation Done by: Silviano Fabian PTA I concur with the documentation of this WOOD GRINDER OPERATOR. Plan: continue PT as per plan of care. Addendum: 06/08/16 at 1530 by Patricia Oro PT Amended: Links added.
[2016-06-08 15:18] VITALS: Ht 182.9 cm; Wt 64.9 kg
--- NOTE | 2016-06-08 16:07 | NUR ---
dr merino returned page. dhillon for three way 22g ajmia fatima continuous irrigation and one more unit of prbc's ordered Addendum: 06/08/16 at 1608 by Jaycee Ambrose RN wrong patient
[2016-06-08 16:13] VITALS: BP 150/88; PULSE 93; RESP 19; TEMP 97; O2SAT 99
--- NOTE | 2016-06-08 18:56 | NUR ---
REMAINS AT BEDSIDE. PATIENT PERSISTENT THAT HE NEEDS TO REMOVE HIS IV. IV SECURED IN TO PLACE AND PATIENT CONSTANTLY REORIENTED
--- NOTE | 2016-06-08 19:45 | NUR ---
Notes Called patient to this number [phone], per patient request due to he does not want the IV line. Left message to ans machine. Awaiting for to call back.
--- NOTE | 2016-06-08 19:48 | NUR ---
Paged Toggle Press Folder And Feeder paged Dr Estrada to clarify Seroquel medication, awaiting for MD to call back.
[2016-06-08 19:52] VITALS: BP 146/85; PULSE 90; RESP 18; TEMP 98.3; O2SAT 97
--- NOTE | 2016-06-08 20:14 | NUR ---
Medication Dr Estrada called back informed regarding Seroquel Dosage, New order received Seroquel 25mg BID to give at 9am and 5pm. Seroquel 50mg every HS.
--- NOTE | 2016-06-08 20:18 | NUR ---
Notes Patient's called back, informed that patient does not want IV fluid, talk to patient on the phone. After talking to , patient ok to have IV fluid. will continue to monitor patient.
--- NOTE | 2016-06-08 20:22 | NUR ---
SCD machine Patient refused scd machine.
[2016-06-08] MEDS: LACTOBACILLUS RHAMNOSUS GG 1 CAP CAPSULE PO SCH (21:13)
--- NOTE | 2016-06-08 21:22 | NUR ---
Notes Patient resting and watching tv, denies of any pain, no acute distress noted, sitter at the bedside.
--- NOTE | 2016-06-09 00:18 | NUR ---
Notes Patient resting quietly. sitter at the bedside.
[2016-06-09 00:20] VITALS: BP 138/80; PULSE 92; RESP 18; TEMP 98.4; O2SAT 97
--- NOTE | 2016-06-09 03:11 | NUR ---
Notes Patient resting quietly. sitter at the bedside.
[2016-06-09] MEDS: PIPERACILLIN/TAZO 3.375/DEX-IS 50 ML IV SCH ×3 (03:27→16:00)
[2016-06-09 04:00] VITALS: BP 147/91; PULSE 94; RESP 18; TEMP 97.2; O2SAT 96
[2016-06-09] MEDS: NACL 0.9% 1,000 ML IV SCH (04:45)
--- NOTE | 2016-06-09 05:15 | NUR ---
Notes Patient resting quietly. sitter at the bedside.
[2016-06-09] MEDS: INSULIN REGULAR, HUMAN 100 UNITS/ML, 10 ML VIAL (novoLIN R) SUBCUT PRN ×2 (06:03→13:05)
--- NOTE | 2016-06-09 06:15 | NUR ---
Closing notes Patient slept most of the night, no other changes noted on patient current condition.
[2016-06-09 07:01] LABS: BASOPHILS % (AUTO) 0.6 % (0.0-2.0); EOSINOPHILS # (AUTO) 0.2 K/uL (0.0-0.4); HEMATOCRIT 30.2 % (36-54); HEMOGLOBIN 10.3 g/dL (14.0-18.0); LYMPHOCYTES # (AUTO) 1.3 K/uL (1.0-5.5); LYMPHOCYTES % (AUTO) 29.5 % (20.5-51.5); MEAN CORPUSCULAR HEMOGLOBIN 28 pg (27-31); MEAN CORPUSCULAR HGB CONC 34 % (32-36); MEAN CORPUSCULAR VOLUME 83 fL (79.0-98.0); MONOCYTES # (AUTO) 0.3 K/uL (0.0-1.0); MONOCYTES % (AUTO) 7.3 % (1.7-9.3); NEUTROPHILS # (AUTO) 2.5 K/uL (1.8-7.7); NEUTROPHILS % (AUTO) 58.6 % (40.0-70.0); PLATELET COUNT (AUTO) 163 K/uL (130-430); RED BLOOD CELL COUNT(AUTO) 3.64 MIL/uL (4.2-6.2); RED CELL DISTRIBUTION WIDTH 12.5 % (9.0-15.0); WHITE BLOOD COUNT (AUTO) 4.4 K/uL (4.8-10.8)
[2016-06-09 07:15] VITALS: BP 144/88; PULSE 86; RESP 16; TEMP 97; O2SAT 96
--- NOTE | 2016-06-09 07:20 | NUR ---
AM ROUNDS Pt sleeping at this time...IVF infusing well to LFA...D/O at bedside...Will cont to monitor
--- NOTE | 2016-06-09 08:12 | NUR ---
Social Service Note: FLORENTINO called [facility] ([phone]) and spoke to Priscilla; Priscilla states that there are no open beds at this time but that they are waiting for doctors to round and anticipate discharges later today. FLORENTINO will call back to check status of beds. Addendum: 06/09/16 at 1053 by Divien Carlos LCSW FLORENTINO called [facility] ([phone]) and spoke to Marga; Marga states that they are still waiting for the psychiatrist to round and have no pending discharges at this time. Addendum: 06/09/16 at 1431 by Divine Carlos LCSW FLORENTINO called [facility] ([phone]) and spoke to Marga; Marga states that they "lost the referral" and asked for SHOW CARD WRITER to fax the referral again. SHOW CARD WRITER has faxed the referral again to: [phone]. SHOW CARD WRITER will follow up with Marga to confirm referral was received and check bed status.
[2016-06-09 09:01] LABS: ANION GAP 9 (5-15); CALCIUM 8.9 mg/dL (8.4-11.0); CHLORIDE 105 mmol/L (98-107); CREATININE 0.96 mg/dL (0.55-1.30); GLUCOSE 140 mg/dL (70-99); POTASSIUM 4.1 mmol/L (3.5-5.1); SODIUM SERUM 140 mmol/L (136-145); UREA NITROGEN, BLOOD 11 mg/dL (8-21)
[2016-06-09] MEDS: LISINOPRIL 20 MG TABLET PO SCH ×2 (09:44→09:47)
[2016-06-09] MEDS: QUEtiapine FUMARATE 25 MG TABLET PO SCH ×2 (09:44→16:28)
[2016-06-09] MEDS: MUPIROCIN 2% TOPICAL OINTMENT 22 GM TP SCH (09:44)
[2016-06-09] MEDS: LACTOBACILLUS RHAMNOSUS GG 1 CAP CAPSULE PO SCH (09:44)
--- NOTE | 2016-06-09 10:00 | NUR ---
INCONTINENT OF STOOL LORNA-CARE DONE, PARTIAL LINEN CHANGED....
[2016-06-09] MEDS: LORazepam 1 MG TABLET PO PRN ×2 (10:23→16:28)
--- NOTE | 2016-06-09 10:38 | NUR ---
AGITATED, COMBATIVE PT AGITATED. WANTING TO GET OUT OF BED, PULL OUT IV..HITTING STAFF, BEING VERBALLY ABUSIVE TO STAFF...P.O ATIVAN GIVEN, PT DID NOT SWALLOW IT AND JUST KEPT THE PILL IN HIS MOUTH...DR GARG PAGED
--- NOTE | 2016-06-09 10:50 | NUR ---
BOB SCALE EVALUATION: Patient evaluated for a low Bob score of 16. Patient was awake, alert, confused, combative, and received in a Neno bed with an Atmos-Air 9000 mattress. Patient is unable to turn independently. Skin is fair; Buttocks have redness from IAD. Recommend reposition patient side to side only every 2 hours with pillow support and off-load pressure areas with pillows for pressure re-distribution. Elevate, off-load and float bilateral heels with pillows. Use moisture barrier cream on buttocks and other moisture susceptible areas QID and as needed for soiling. Perform skin care and monitor skin integrity Q shift.
--- NOTE | 2016-06-09 10:56 | NUR ---
2ND PAGE FOR DR GARG
--- NOTE | 2016-06-09 11:03 | NUR ---
NEW ORDER FOR ATIVAN IVP X1 GIVEN BY DR GARG COVERING NURSE WILL ADMINISTER
--- NOTE | 2016-06-09 11:11 | NUR ---
PT CALM AT THIS TIME, IV ATIVAN HAS NOT BEEN ADMINISTERED AND WILL BE HELD AT THIS TIME WILL MONITOR PT...ATIVAN ON HOLD AT THIS TIME...WILL GIVE IF PT BECOMES COMBATIVE AND ABUSIVE AGAIN
--- NOTE | 2016-06-09 11:14 | NUR ---
PAGED DR OTTO, PER DR GARG REQUEST TO INFORM HIM OF PT BEING COMBATIVE, ABUSIVE, AND AGITATED
[2016-06-09] MEDS ORDERED: LORazepam 2 MG/ML VIAL IVP ONE (11:15)
--- NOTE | 2016-06-09 11:17 | NUR ---
SPOKE W/EZEQUIEL @ DR OTTO OFFICE LEFT MESSAGE FOR DR OTTO W/EZEQUIEL ABOUT PTS AGGRESSIVE BEHAVIOR TOWARDS STAFF..PER DR GARG ORDER
[2016-06-09 11:30] VITALS: BP 141/88; PULSE 113; RESP 16; TEMP 97.2; O2SAT 98
--- NOTE | 2016-06-09 13:15 | NUR ---
PT CALM.. AT BEDSIDE
--- NOTE | 2016-06-09 14:26 | NUR ---
DR GARG AT BEDSIDE DISCUSSING PLAN OF CARE WITH PTS ...PT ASLEEP AT THIS TIME
--- NOTE | 2016-06-09 14:29 | NUR ---
PHYSICAL THERAPY CO-SIGN The Physical Therapy Progress Notes documented by Personal Computer Network Analyst have been reviewed. I CONCUR W/PALLIATIVE CARE PHYSICIAN NOTE; TO CONT IN ENCOURAGING Pt WITH OOB ACTIVITY, CONT PER TX PLAN Reviewed/Co-Signed by: Jennifer Ellsworth PT Documentation Done by: JOSE MARIA PATEL PALLIATIVE CARE PHYSICIAN Addendum: 06/09/16 at 1430 by Jennifer Ellsworth PT Amended: Links added.
[2016-06-09 15:53] VITALS: BP 163/94; PULSE 100; RESP 20; TEMP 97.1; O2SAT 96
--- NOTE | 2016-06-09 16:15 | NUR ---
AGITATION, RESTLESSNESS PT BECOMING AGITATED, TRYING TO GET OUT OF BED...P.O ATIVAN WILL BE GIVEN
--- NOTE | 2016-06-09 16:30 | NUR ---
Social Service Note: QUALITY ASSURANCE ASSESSOR received call from Marga at [facility]; pt has been accepted for a direct admit; to room [address] under Dr[address] Estrada and Dr. Mendes. QUALITY ASSURANCE ASSESSOR placed call to pt's physician and alerted him of pt's acceptance. QUALITY ASSURANCE ASSESSOR placed call to pt's and alerted her and provided her with contact information for [facility]. QUALITY ASSURANCE ASSESSOR has arranged transportation with [facility]; spanish moss picker at 6:00pm. Nurse to nurse report [phone]. Packet has been placed at nurses station.
[2016-06-09 17:16] VITALS: BP 163/94; PULSE 100; RESP 20; TEMP 97.1; O2SAT 96
--- NOTE | 2016-06-09 18:00 | NUR ---
ROUNDS PT CALM AND QUIET AT THIS TIME... AT BEDSIDE...D/O AT BEDSIDE...WILL CONT TO MELVIN
--- NOTE | 2016-06-09 18:23 | NUR ---
PT TRANSFERRED Report given to ESTIVEN SEWELL at [facility]. Transfer packet with Transfer Orders and Medication Reconciliation form given to EMT with report. Exitcare provided. [facility] ID band removed, replaced with ID band with pt's name and . IV catheter removed, intact and dressing applied, no active bleeding. All belongings sent with patient. Patient left floor via gurney escorted by EMT in no distress.
== END 2016-06-09 18:23 | DRG 885 ==
LOC: SED 16:13 → SMU 17:54
PROVIDERS: ADMIT Internal Medicine; ATTEND Internal Medicine
DX: F29 Unspecified psychosis not due to a substance or known physiological condition (principal); G93.40 Encephalopathy, unspecified; F03.90 Unspecified dementia, unspecified severity, without behavioral disturbance, psychotic disturbance, mood disturbance, and anxiety; I10 Essential (primary) hypertension; E11.9 Type 2 diabetes mellitus without complications; M19.90 Unspecified osteoarthritis, unspecified site; Z79.4 Long term (current) use of insulin; Z86.73 Personal history of transient ischemic attack (TIA), and cerebral infarction without residual deficits; Z79.899 Other long term (current) drug therapy; Z22.322 Carrier or suspected carrier of Methicillin resistant Staphylococcus aureus
CPT/HCPCS: 36415; 70450-TC; 71010; 73560-TC; 80048; 80053; 81003; 82140-TC; 82607; 82962; 83605; 84439; 84443-TC; 84484; 84550-TC; 85025; 85610-TC; 85730-TC; 87040-TC; 87081; 93005; 97110-GP; 97116-GP; 97530-GP; 99285; A9579; G0480; J1815; J2543; J7030; J7060